=== PATIENT | male | born 2000 | race African-American/Black ===

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

== ENCOUNTER 2023-04-22 13:42 | Emergency (ER) | payer MEDICAID ==
[~2023-04-22] VITALS: Ht 182.9 cm; Wt 79.4 kg
[2023-04-22 13:50] VITALS: BP 135/80; PULSE 106; RESP 16; TEMP 98.7; O2SAT 96
[2023-04-22] MEDS ORDERED: BACI-418 TP (15:40)
[2023-04-22] MEDS ORDERED: NAPR-54 PO (15:40)
[2023-04-22] MEDS ORDERED: CYCL-711 PO (15:40)
[2023-04-22] MEDS ORDERED: LID5T TP (15:40)
[2023-04-22 15:56] VITALS: BP 125/80; PULSE 88; RESP 16; TEMP 98.7; O2SAT 97
== END 2023-04-22 15:56 | disposition home or self-care (01) ==
LOC: MED 13:42
DX: S40.212A Abrasion of left shoulder, initial encounter (principal); S90.812A Abrasion, left foot, initial encounter; S20.412A Abrasion of left back wall of thorax, initial encounter; S50.312A Abrasion of left elbow, initial encounter; S80.212A Abrasion, left knee, initial encounter; Z79.899 Other long term (current) drug therapy; Z79.1 Long term (current) use of non-steroidal anti-inflammatories (NSAID); Z79.2 Long term (current) use of antibiotics; V29.99XA Rider (driver) (passenger) of other motorcycle injured in unspecified traffic accident, initial encounter; Y93.89 Activity, other specified; Y92.410 Unspecified street and highway as the place of occurrence of the external cause; Y99.8 Other external cause status
CPT/HCPCS: 73030; 90471; 90715; 99283; Q0092

== ENCOUNTER 2023-08-21 11:25 | Emergency (ER) | payer MEDICAID ==
[~2023-08-21] VITALS: Ht 182.9 cm; Wt 77.1 kg
[~2023-08-21 11:25] MED LIST: BACI-418 TP; CYCL-711 PO; LID5T TP; NAPR-54 PO
[2023-08-21 11:30] VITALS: BP 138/90; PULSE 88; RESP 16; TEMP 97; O2SAT 97
[2023-08-21] MEDS: BACITRACIN OINT 500 UNITS/GM PKT TP ONE (12:18)
== END 2023-08-21 13:05 | disposition home or self-care (01) ==
LOC: MED 11:25
DX: S50.811A Abrasion of right forearm, initial encounter (principal); S70.211A Abrasion, right hip, initial encounter; S80.211A Abrasion, right knee, initial encounter; V87.8XXA Person injured in other specified noncollision transport accidents involving motor vehicle (traffic), initial encounter; Y93.55 Activity, bike riding; Y92.410 Unspecified street and highway as the place of occurrence of the external cause; Y99.8 Other external cause status
CPT/HCPCS: 99282

== ENCOUNTER 2023-10-05 14:02 | Emergency (ER) | payer MEDICAID ==
[~2023-10-05] VITALS: Ht 188 cm; Wt 76.9 kg
[~2023-10-05 14:02] MED LIST changes: +NAPR-337 PO; -NAPR-54 PO
[2023-10-05 14:45] VITALS: BP 125/64; PULSE 58; RESP 20; TEMP 98.5; O2SAT 95
[2023-10-05] MEDS: IBUPROFEN 600 MG TAB PO ONE (16:20)
[2023-10-05 16:36] VITALS: BP 128/67; PULSE 60; RESP 20; TEMP 98.2; O2SAT 97
[2023-10-05] MEDS ORDERED: METH-1681 PO (17:03)
[2023-10-05] MEDS ORDERED: IBUP-2213 PO (17:03)
== END 2023-10-05 17:08 | disposition home or self-care (01) ==
LOC: MED 14:02
DX: S39.012A Strain of muscle, fascia and tendon of lower back, initial encounter (principal); S76.012A Strain of muscle, fascia and tendon of left hip, initial encounter; Z79.899 Other long term (current) drug therapy; V49.88XA Car occupant (driver) (passenger) injured in other specified transport accidents, initial encounter; Y93.89 Activity, other specified; Y92.89 Other specified places as the place of occurrence of the external cause; Y99.8 Other external cause status
CPT/HCPCS: 72100; 99284

== ENCOUNTER 2023-12-31 10:07 | Emergency (ER) | payer MEDICAID, OTHER ==
[~2023-12-31] VITALS: Ht 182.9 cm; Wt 79.4 kg
[2023-12-31 10:42] VITALS: BP 112/65; PULSE 59; RESP 16; TEMP 98; O2SAT 97
[2023-12-31] MEDS ORDERED: IBUP-2213 PO (11:37)
== END 2023-12-31 12:13 | disposition home or self-care (01) ==
LOC: MED 10:07
DX: S62.364A Nondisplaced fracture of neck of fourth metacarpal bone, right hand, initial encounter for closed fracture (principal); Z79.899 Other long term (current) drug therapy; W22.8XXA Striking against or struck by other objects, initial encounter; Y92.89 Other specified places as the place of occurrence of the external cause; Y93.89 Activity, other specified; Y99.8 Other external cause status
CPT/HCPCS: 73130; 99283